=== PATIENT | female | born 1945 | race Caucasian/White ===

== ENCOUNTER → 2016-03-10 | Outpatient (CLI) | payer MEDICARE ==
--- NOTE | 2016-03-10 10:19 | MRI ---
EXAM DESCRIPTION: Brain MRI. CLINICAL HISTORY: Patient has acute and noticeably decreased vision. COMPARISON: None. TECHNIQUE: Multiplanar, multisequence MR images were acquired without IV contrast. FINDINGS: The midline structures on today's exam are unremarkable. Mild involutional changes related age, but no evidence of microvascular ischemic change. Mendez and white matter is unremarkable on today's study.No intracranial mass effect, hydrocephalus, midline shift, hemorrhage, extra-axial fluid collection, abnormal vascular flow void, or restricted diffusion is seen. Calvarial signal is intact. Paranasal sinuses and the mastoid air cells appear clear. Orbits are within normal limits. IMPRESSION: Today's exam demonstrates no findings for patient's decreased vision, overall given patient's age today's exam is unremarkable. Electronically signed by: Wes Souza MD 03/10/2016 10:17
== END ==
LOC: MRI 08:46
PROVIDERS: ATTEND Family Medicine
DX: H54.7 Unspecified visual loss (principal)

== ENCOUNTER → 2016-03-24 | Outpatient (CLI) | payer MEDICARE, BC | LOC: SL 03-17 13:55 | PROVIDERS: ATTEND Family Medicine | DX: R06.83 Snoring (principal); G47.00 Insomnia, unspecified; R53.83 Other fatigue; I10 Essential (primary) hypertension; G47.9 Sleep disorder, unspecified ==

== ENCOUNTER → 2016-06-01 | Outpatient (CLI) | payer MEDICARE | END | disposition home or self-care (01) | LOC: GMAM 10:26 | PROVIDERS: ATTEND Family Medicine | DX: E03.9 Hypothyroidism, unspecified (principal) ==

== ENCOUNTER → 2016-12-09 | Outpatient (CLI) | payer MEDICARE | END | disposition home or self-care (01) | LOC: GMAM 14:05 | PROVIDERS: ATTEND Family Medicine | DX: E03.9 Hypothyroidism, unspecified (principal) ==

== ENCOUNTER → 2017-07-06 | Outpatient (CLI) | payer MEDICARE | LOC: GMAM 11:10 | PROVIDERS: ATTEND Family Medicine | DX: E03.9 Hypothyroidism, unspecified (principal) ==

== ENCOUNTER → 2017-12-26 | Outpatient (CLI) | payer MEDICARE | LOC: GMAM 13:24 | PROVIDERS: ATTEND Family Medicine | DX: E03.9 Hypothyroidism, unspecified (principal); I10 Essential (primary) hypertension ==

== ENCOUNTER → 2018-02-16 | Outpatient (CLI) | payer MEDICARE ==
--- NOTE | 2018-02-19 11:29 | MAM ---
EXAM DESCRIPTION: 3D Screening Right : Digital Mammography. CLINICAL HISTORY: 72 years Female ANNUAL SCREENING . Left breast cancer 1997 with mastectomy. No complaints.. Lifetime risk of developing breast cancer (Tyrer-Cuzick model)(%): Not calculated due to personal history of breast cancer. COMPARISON: 2-D digital screening right mammography 02/23/2016. TECHNIQUE: Right CC and MLO projection full-field images, digital tomosynthesis mammographic technique. Right digital 2-D full-field MLO images. CAD not available for tomosynthesis or 2-D images. FINDINGS: Right breast parenchymal density pattern is: Heterogeneously dense breast tissue, which may obscure small masses. No skin thickening or nipple retraction. Small solitary microcalcifications. No new focal, stellate mass or density, focal asymmetry , and no suspicious microcalcifications right breast. Stable mammograms compared to prior study. Taking into account, differences in mammographic technique. IMPRESSION: Benign exam. BIRAD CATEGORY: 2 BENIGN FINDINGS. RECOMMENDATIONS: FOLLOW UP: Routine digital right mammographic screening, one year interval from February 2018. Written communication explaining the IMPRESSION and follow-up, will be mailed to the patient and referring health care provider. According to the [employer], yearly mammograms are recommended starting at age 40 and continuing as long as a woman is in good health. Any breast change noted on a breast self-exam should be reported promptly to the patient's healthcare provider. Breast MRI is recommended for women with an approximately 20-25% or greater lifetime risk of breast cancer, including women with a strong family history of breast or ovarian cancer and women who have been treated for Hodgkin's disease. A negative mammographic report should not delay tissue diagnosis in patients with significant clinical history or physical findings. Extremely dense breast tissue limits the sensitivity of digital mammography. Electronically signed by: Jose Salvador MD 02/19/2018 11:28 AM [employer] APPRENTICE
== END ==
LOC: MAMMO 11:30
PROVIDERS: ATTEND Family Medicine
DX: Z12.31 Encounter for screening mammogram for malignant neoplasm of breast (principal)

== ENCOUNTER → 2018-08-14 | Outpatient (CLI) | payer MEDICARE | LOC: GMAM 10:21 | PROVIDERS: ATTEND Family Medicine | DX: E03.9 Hypothyroidism, unspecified (principal); I10 Essential (primary) hypertension ==

== ENCOUNTER → 2019-01-08 | Outpatient (CLI) | payer MEDICARE | LOC: GMAM 10:45 | PROVIDERS: ATTEND Family Medicine | DX: E03.9 Hypothyroidism, unspecified (principal); I10 Essential (primary) hypertension ==

== ENCOUNTER → 2019-02-19 | Outpatient (CLI) | payer MEDICARE ==
--- NOTE | 2019-02-22 14:26 | MAM ---
EXAM DESCRIPTION: 3D Screening BILATERAL : Digital Mammography. CLINICAL HISTORY: 73 years Female ANNUAL SCREENING . Right breast cancer and mastectomy 1996. No family history of breast cancer. Menarche age 11. Childbirth age 18. Postmenopausal unknown age. No HRT. Lifetime risk of developing breast cancer (Tyrer-Cuzick model)(%): Not calculated due to personal history of breast cancer. COMPARISON: Right breast screening digital breast tomosynthesis 16 February 2018. 2-D digital screening right breast mammography 23 February 2016. TECHNIQUE: Right breast CC and MLO projection full-field images, digital tomosynthesis mammographic technique. Right breast 2-D digital full-field images, MLO and CC projections, non-displaced. Right breast digital 2-D full-field MLO images. CAD not available for tomosynthesis or 2-D images. FINDINGS: Right breast parenchymal density pattern is: Scattered areas of fibroglandular density. No skin thickening or nipple retraction. Solitary microcalcifications. No new focal, stellate mass or density, focal asymmetry , and no suspicious microcalcifications right breast. Stable mammograms compared to prior study. IMPRESSION: Benign exam. BIRAD CATEGORY: 2 BENIGN FINDINGS. RECOMMENDATIONS: FOLLOW UP: Routine digital right breast mammographic screening, one year interval from February 2019. Written communication explaining the IMPRESSION and follow-up, will be mailed to the patient and referring health care provider. According to the [employer], yearly mammograms are recommended starting at age 40 and continuing as long as a woman is in good health. Any breast change noted on a breast self-exam should be reported promptly to the patient's healthcare provider. Breast MRI is recommended for women with an approximately 20-25% or greater lifetime risk of breast cancer, including women with a strong family history of breast or ovarian cancer and women who have been treated for Hodgkin's disease. A negative mammographic report should not delay tissue diagnosis in patients with significant clinical history or physical findings. Extremely dense breast tissue limits the sensitivity of digital mammography. Electronically signed by: Jose Salvador MD 02/22/2019 2:25 PM EMERGENCY MEDICINE MEDICAL DIRECTOR
== END ==
LOC: MAMMO 10:00
PROVIDERS: ATTEND Family Medicine
DX: Z12.31 Encounter for screening mammogram for malignant neoplasm of breast (principal)

== ENCOUNTER → 2019-09-27 | Outpatient (CLI) | payer MEDICARE | LOC: GMAM 10:46 | PROVIDERS: ATTEND Family Medicine | DX: E03.9 Hypothyroidism, unspecified (principal); I10 Essential (primary) hypertension ==

== ENCOUNTER → 2019-10-01 | Outpatient (CLI) | payer MEDICARE | LOC: GMAM 16:39 | PROVIDERS: ATTEND Family Medicine | DX: M15.0 Primary generalized (osteo)arthritis (principal) ==

== ENCOUNTER 2020-02-03 11:23 | Outpatient (CLI) | payer MEDICARE | END 2020-02-03 13:46 | disposition home or self-care (01) | LOC: INFRM 11:23 | PROVIDERS: ATTEND Family Medicine | DX: U07.1 COVID-19 (principal); Z23 Encounter for immunization ==

== ENCOUNTER → 2020-02-24 | Outpatient (CLI) | payer MEDICARE ==
--- NOTE | 2020-02-24 14:42 | MAM ---
EXAM DESCRIPTION: 3D Screening RIGHT : Digital Mammography. CLINICAL HISTORY: 74 years Female SCREENING . Malignancy (breast 1997 with mastectomy. Sister with breast cancer age 75. Lifetime risk of developing breast cancer (Tyrer-Cuzick model)(%): Not calculated due to personal history of breast cancer. COMPARISON: Right breast screening digital breast tomosynthesis February 2019 and February 2018. TECHNIQUE: Right CC and MLO projection full-field images, digital tomosynthesis mammographic technique. Right breast digital 2-D full-field MLO images. CAD available for 2-D images. FINDINGS: Right breast parenchymal density pattern is: Heterogeneously dense breast tissue, which may obscure small masses. Solitary microcalcifications. No skin thickening or nipple retraction No new focal, stellate mass or density, focal asymmetry , and no suspicious microcalcifications right breast. Stable mammograms compared to prior study. IMPRESSION: Benign exam. BIRAD CATEGORY: 2 BENIGN FINDINGS. RECOMMENDATIONS: FOLLOW UP: Routine digital right mammographic screening, one year interval from February 2020. Written communication explaining the IMPRESSION and follow-up, will be mailed to the patient and referring health care provider. According to the [employer], yearly mammograms are recommended starting at age 40 and continuing as long as a woman is in good health. Any breast change noted on a breast self-exam should be reported promptly to the patient's healthcare provider. Breast MRI is recommended for women with an approximately 20-25% or greater lifetime risk of breast cancer, including women with a strong family history of breast or ovarian cancer and women who have been treated for Hodgkin's disease. A negative mammographic report should not delay tissue diagnosis in patients with significant clinical history or physical findings. Extremely dense breast tissue limits the sensitivity of digital mammography. Electronically signed by: Jose Salvador MD 02/24/2020 2:40 PM [facility]
== END ==
LOC: MAMMO 10:55
PROVIDERS: ATTEND Family Medicine
DX: Z12.31 Encounter for screening mammogram for malignant neoplasm of breast (principal)

== ENCOUNTER → 2020-04-01 | Outpatient (CLI) | payer MEDICARE | LOC: GMAM 11:51 | PROVIDERS: ATTEND Family Medicine | DX: E03.9 Hypothyroidism, unspecified (principal); I10 Essential (primary) hypertension ==